=== PATIENT | female | born 1970 | race African-American/Black ===

== ENCOUNTER → 2016-06-09 | Outpatient (CLI) | payer OTHER ==
[~2016-06-09] VITALS: Ht 170.2 cm; Wt 95.5 kg
[~2016-06-09] MED LIST: AMBIEN 5MG TABLE5 MG PO; COLACE 100100 MG/CAP PO; CYMBALTA 60MG60 MG PO; DERMA SMOOTHE TP; FLONASE NASAL S16 GM NS; GLUCOPHAGE500 MG/TAB PO; LEADER EYE ITCH5 ML OP; MAG-OX 400400 MG/TAB PO; MAXALT10 MG PO; MOBIC15 MG PO; OMEGA-3 FISH1000 MG PO; PRIMLEV5; PRINIVIL20 MG PO; RIBOFLAVIN100 MG PO; SINGULAIR 110 MG/TAB PO; TOPAMAX50 MG PO; VITAMIN B650 MG; WELLBUTRIN XL300 M1 PO; XANAX 1MG1 MG PO; ZOSTRIX-HP0.075% TP; ZYRTEC 10MG10 MG PO; [UNRECOGNIZED DRUG - OTHER] TP
[2016-06-09 07:32] VITALS: BP 125/79; PULSE 70
[2016-06-09 08:28] VITALS: BP 117/76; PULSE 69
== END ==
LOC: COL.RAD 06:47
DX: D34 Benign neoplasm of thyroid gland (principal)